=== PATIENT | male | born 1990 | race Caucasian/White ===

== ENCOUNTER 2016-11-25 20:41 | Emergency (ER) | payer BC ==
--- NOTE | ~2016-11-25 | CR63 ---
[facility]. [facility] A Service of [facility] & [facility] RADIOLOGY TEXT RESULTS PATIENT: AISLINN NOVOA LOCATION: SED : 91 UNIT #: [id number] AGE: [address]: Anna Marie Oliveira APRN SEX: M ORDER DR: [id number] [place] [id number] E MR#: [id number] Acc #: [id number] NAME: AISLINN NOVOA : 1990 SEX: M STUDY DATE/TIME: 11/25/2016 21:00 UNIT: SED ROOM: STUDY DESCRIPTION: CR Chest 2 View Attending Physician: Anna Marie Oliveira A.P.R.N. Ordering Physician: Anna Marie Voss A.P.R.N. Primary Care Physician: Michael Butler P.A.-C. MEDICAL IMAGING REPORT This report is preliminary unless electronic signature is present. EXAM Chest x-ray 2 views, 11/25/2016 HISTORY Sore throat and headache. Body aches and cough. Seen by primary care doctor on 11/21 and being treated with antibiotic. FINDINGS Two views of the chest. Comparison is from 05/11/2015. There is minimal thoracic degenerative change. No pleural effusion. Heart size is normal. No acute appearing parenchymal infiltrate or acute congestive failure. No pneumothorax. IMPRESSION No active disease. Dictated by... Letitia Guadarrama M.D. THIS IS AN ELECTRONICALLY VERIFIED REPORT Letitia Guadarrama M.D. at 11/26/2016 10:24 AM Kathy TD: 11/26/2016 02:00 JOB #: [id number] MEDICAL IMAGING REPORT Page 1 of 1
[~2016-11-25 20:41] MED LIST: CLEOCIN PO; DOXYCYCLINE HY100 M1 PO; ELIMITE60 G1 TP; HYDROCODON-ACE1 EAC7 PO; HYDROXYZINE HCL25 M1 PO; MOTRIN600 MG PO; NAPROXEN PO; NO MEDICATIONS; OMNICEF; ROBITUSSIN COU118 M6 PO; SUDAFED PLUS PO; SUDAFED PO; ZITHROMAX PO; ZOLOFT50 MG PO
[2016-11-25 21:19] LABS: INFLUENZA A NEG (NEG); INFLUENZA B NEG (NEG)
== END 2016-11-25 21:30 | disposition home or self-care (01) ==
LOC: SED 20:41
PROVIDERS: Nurse Practitioner
DX: B34.9 Viral infection, unspecified (principal); F41.9 Anxiety disorder, unspecified; F32.9 Major depressive disorder, single episode, unspecified; Z88.0 Allergy status to penicillin; Z88.1 Allergy status to other antibiotic agents
CPT/HCPCS: 71020; 87804; 94640; 99283

== ENCOUNTER 2017-04-13 02:24 | Emergency (ER) | payer BC ==
[~2017-04-13] VITALS: Ht 175.3 cm; Wt 69.8 kg
--- NOTE | ~2017-04-13 | CR2 ---
[facility]. [facility] A Service of [facility] & [facility] / [facility] RADIOLOGY TEXT RESULTS PATIENT: AISLINN NOVOA LOCATION: SED : 91 UNIT #: [id number] AGE: [address]: Ana Rosa Tate MD SEX: M ORDER DR: [id number] [place] [id number] E MR#: [id number] Acc #: [id number] NAME: AISLINN NOVOA : 1990 SEX: M STUDY DATE/TIME: 04/13/2017 3:17 UNIT: SED ROOM: STUDY DESCRIPTION: CR Abdomen Acute Series Attending Physician: Ana Rosa Tate M.D. Ordering Physician: Ana Rosa Tate M.D. MEDICAL IMAGING REPORT This report is preliminary unless electronic signature is present. EXAM Acute abdomen series, 04/13/2017. HISTORY 26-year-old male in the ED complaining of 2-day history of generalized abdomen pain with nausea and diarrhea. Shortness of air. TECHNIQUE Flat and upright abdomen series with PA upright chest x-ray. FINDINGS Bowel gas pattern is normal. No evidence bowel obstruction, adynamic ileus or bowel perforation. PA chest x-ray is negative. The lungs are expanded and clear. IMPRESSION Negative acute abdomen series. Dictated by... Bob Fox M.D. THIS IS AN ELECTRONICALLY VERIFIED REPORT Bob Fox M.D. at 04/15/2017 8:57 PM FERNANDOW/ratna TD: 04/13/2017 12:30 JOB #: [id number] MEDICAL IMAGING REPORT Page 1 of 1
[2017-04-13 03:14] LABS: BASOPHIL% 0.6 % (0-2.5); EOSINOPHIL% 0.4 % (0.0-7.0); HEMATOCRIT 43.6 % (38.0-50.0); HEMOGLOBIN 15.1 gm/dL (13.0-16.0); LYMPHOCYTE# 2.2 X10e3 (1.0-3.5); LYMPHOCYTE% 31.8 % (17.0-45.0); MEAN CORPUSCULAR HEMOGLOBIN 31.2 PG (28-34); MEAN CORPUSCULAR HGB CONC 34.7 g/dL (30-36); MEAN PLATELET VOLUME 10.2 FL (6.5-11.5); MONOCYTE# 0.4 X10e3 (0-1.0); MONOCYTE% 5.5 % (3.0-12.0); NEUTROPHIL# 4.2 X10e3 (1.5-7.1); NEUTROPHIL% 61.7 % (40-75); PLATELET COUNT 132 X10e3 (140-420); RED BLOOD COUNT 4.84 X10e (3.90-5.60); RED CELL DISTRIBUTION WIDTH 13.1 % (11.0-15.5); WHITE BLOOD COUNT 6.8 X10e3 (4.0-10.5)
[2017-04-13 03:15] LABS: DIFF IND NO
[2017-04-13 03:31] LABS: ALBUMIN SERUM 4.4 g/dL (3.5-5.0); BILIRUBIN, DIRECT 0.1 mg/dL (0.0-0.2); BILIRUBIN,INDIRECT 0.4 mg/dL (0.0-0.9); BILIRUBIN,TOTAL 0.5 mg/dL (0.2-2.0); BUN/CREATININE RATIO 14.54; CREATININE SERUM 1.1 mg/dL (0.6-1.4); GLOM FILT RATE Estimated 92.8 mL/min (>60); POTASSIUM 3.6 mmol/L (3.5-5.1); PROTEIN TOTAL SERUM 7.2 g/dL (6.0-8.3)
== END 2017-04-13 04:18 | disposition home or self-care (01) ==
LOC: SED 02:24
PROVIDERS: Emergency Medicine
DX: R19.7 Diarrhea, unspecified (principal); R11.0 Nausea; F41.9 Anxiety disorder, unspecified; F32.9 Major depressive disorder, single episode, unspecified; F17.210 Nicotine dependence, cigarettes, uncomplicated; Z88.0 Allergy status to penicillin; Z88.1 Allergy status to other antibiotic agents; Z79.899 Other long term (current) drug therapy
CPT/HCPCS: 36415; 74022; 80048; 80076; 83690; 85025; 96361; 96374; 96375; 99284; J2405

== ENCOUNTER 2017-05-01 21:45 | Emergency (ER) | payer BC ==
[~2017-05-01] VITALS: Ht 175.3 cm; Wt 68.0 kg
--- NOTE | ~2017-05-01 | CR63 ---
[facility]. [facility] A Service of [facility] & [facility] RADIOLOGY TEXT RESULTS PATIENT: AISLINN NOVOA LOCATION: SED : 91 UNIT #: [id number] AGE: [address]: LUIS AYALA SEX: M ORDER DR: [id number] [place] [id number] E MR#: [id number] Acc #: [id number] NAME: AISLINN NOVOA : 1990 SEX: M STUDY DATE/TIME: 05/02/2017 0:17 UNIT: SED ROOM: STUDY DESCRIPTION: CR Chest 2 View Attending Physician: Luis Ayala R.N. Ordering Physician: Luis Ayala R.N. MEDICAL IMAGING REPORT This report is preliminary unless electronic signature is present. EXAM Two-view chest. INDICATIONS Fever and cough today. PROCEDURE Frontal and lateral views of the chest. COMPARISON 11/25/2016 FINDINGS Heart size normal. The lungs are clear. No pleural fluid or pneumothorax. IMPRESSION No active process. Dictated by... Philip Vasquez M.D. THIS IS AN ELECTRONICALLY VERIFIED REPORT Philip Vasquez M.D. at 05/02/2017 9:54 PM EED/bd TD: 05/02/2017 09:58 JOB #: [id number] MEDICAL IMAGING REPORT Page 1 of 1
[2017-05-02 01:06] LABS: INFLUENZA A NEG (NEG); INFLUENZA B NEG (NEG)
== END 2017-05-02 02:08 | disposition home or self-care (01) ==
LOC: SED 21:45
PROVIDERS: Nurse Practitioner
DX: J02.9 Acute pharyngitis, unspecified (principal); J30.2 Other seasonal allergic rhinitis; J01.90 Acute sinusitis, unspecified; F41.8 Other specified anxiety disorders; F17.210 Nicotine dependence, cigarettes, uncomplicated; Z88.1 Allergy status to other antibiotic agents; Z88.8 Allergy status to other drugs, medicaments and biological substances
CPT/HCPCS: 71020; 87651; 87804; 94640; 99283